=== PATIENT | male | born 1995 | race Two or more races ===

== ENCOUNTER 2024-07-14 14:05 | Outpatient (CLI) | payer OTHER | END 2024-07-14 14:16 | disposition home or self-care (01) | LOC: SONOGRAMA 14:05 | DX: N50.819 Testicular pain, unspecified (principal) ==

== ENCOUNTER 2025-01-06 09:08 | Outpatient (CLI) | payer OTHER | END 2025-01-06 09:18 | disposition home or self-care (01) | LOC: SONOGRAMA 09:08 | PROVIDERS: ATTEND Internal Medicine | DX: K21.00 Gastro-esophageal reflux disease with esophagitis, without bleeding (principal); R10.13 Epigastric pain; R11.0 Nausea ==

== ENCOUNTER → 2025-01-06 11:19 | Outpatient (CLI) | payer OTHER ==
[2025-01-06 12:39] LABS: BASO % 0.4 % (0.1-1.2); EOS # 0.14 (0.04-0.54); EOS % 1.6 % (0.7-7.0); LYMPH # 3.21 (1.18-3.74); LYMPH % 37.7 % (19.3-53.1); MEAN PLATELET VOLUME 10.20 fl (9.4-12.4); MONO # 0.58 (0.24-0.82); MONO % 6.8 % (4.7-12.5); NEUT # 4.53 (1.56-6.13); NEUT % 53.3 % (34.0-71.1); RED CELL DISTRIBUTION WIDTH 12.3 % (11.6-14.4)
[2025-01-06 12:58] LABS: FECAL LEUKOCYTES NEGATIVE (NEGATIVE)
[2025-01-06 13:06] LABS: ALT/SGPT 57.0 U/L (12-78); AST/SGOT 23.0 U/L (15-37); BILIRUBIN TOTAL 1.32 mg/dL (0.3-1.2); BUN CREA RATIO 17.0 (7.0-25.0); CREATININE SERUM 0.96 mg/dL (0.70-1.30); GFR 93.96; GLOBULINA 3.9 G/DL (2.4-3.5); GLUCOSE FASTING 86.0 mg/dL (65-100); OSMOLALITY SERUM 282.0 MOSM/KG (275-295)
== END | disposition home or self-care (01) ==
LOC: LAB 11:19
PROVIDERS: ATTEND Internal Medicine
DX: A09 Infectious gastroenteritis and colitis, unspecified (principal)

== ENCOUNTER 2025-02-05 10:12 | Outpatient (CLI) | payer OTHER | END 2025-02-05 10:13 | disposition home or self-care (01) | LOC: NUCLEAR 10:12 | PROVIDERS: ATTEND Internal Medicine | DX: R10.13 Epigastric pain (principal); R11.2 Nausea with vomiting, unspecified ==